=== PATIENT | male | born 1940 | race Caucasian/White ===

== ENCOUNTER 2017-09-10 19:56 | Emergency (ER) | payer MEDICARE, OTHER ==
[~2017-09-10] VITALS: Ht 180.3 cm; Wt 50.0 kg
[2017-09-10] MEDS ORDERED: albuterol 2.5 MG/3 ML nebule NEB ONE (20:25)
[2017-09-10] MEDS ORDERED: methylPREDNISolone sod succ 125mg/2ml vial IV ONE (20:25)
[2017-09-10 21:06] LABS: BASOPHILS % (AUTO) 0.3 % (0-1); EOSINOPHILS % (AUTO) 10.8 % (0-6); HEMATOCRIT 39.5 % (42.0-52.0); HEMOGLOBIN 13.3 g/dl (14.0-17.9); LYMPHOCYTES # (AUTO) 2.4 X10'3 (1.1-4.8); LYMPHOCYTES % (AUTO) 26.9 % (21-51); MEAN CORPUSCULAR HGB CONC 33.7 % (33.0-36.5); MEAN CORPUSCULAR VOLUME 89.1 FL (78-98); MEAN PLATELET VOLUME 7.6 FL (7.4-10.4); MONOCYTES # (AUTO) 0.8 X10'3 (0-0.9); MONOCYTES % (AUTO) 9.5 % (2-12); NEUTROPHILS # (AUTO) 4.7 X10'3 (1.8-7.7); NEUTROPHILS % (AUTO) 52.5 % (42-75); PLATELET COUNT 178 X10'3 (140-440); RED BLOOD COUNT 4.43 X10'6 (4.70-6.10); RED CELL DISTRIBUTION WIDTH 15.4 % (11.5-14.5); WHITE BLOOD COUNT 8.9 X10'3 (4.5-11.0)
[2017-09-10 21:09] LABS: D-DIMER 0.85 MG/L FEU (0-0.50); INR 1.1 INR; PARTIAL THROMBOPLASTIN TIME 27 SECONDS (22-32); PROTHROMBIN TIME 11.5 SECONDS (9.0-12.0)
[2017-09-10 21:10] LABS: ALANINE AMINOTRANSFERASE 18 U/L (12-78); ALBUMIN 3.2 G/DL (3.4-5.0); ALBUMIN/GLOBULIN RATIO 0.7 (1.1-1.5); ALKALINE PHOSPHATASE 85 IU/L (46-116); ANION GAP 6 (8-16); ASPARTATE AMINO TRANSFERASE 25 U/L (10-37); BILIRUBIN,TOTAL 0.9 MG/DL (0.1-1.0); BLOOD UREA NITROGEN 30 MG/DL (7-18); BUN/CREATININE RATIO 23.8 (5.4-32.0); CALCIUM 9.6 MG/DL (8.5-10.1); CHLORIDE 102 MMOL/L (99-107); CREATININE 1.26 MG/DL (0.60-1.10); GLUCOSE 90 MG/DL (70-104); POTASSIUM 3.9 MMOL/L (3.5-5.1); SODIUM 140 MMOL/L (135-145); TOTAL CARBON DIOXIDE 32.5 MMOL/L (24-32); TOTAL PROTEIN 7.6 G/DL (6.4-8.2); eGFR 55 ML/MIN
[2017-09-10 21:18] LABS: MAGNESIUM 1.9 MG/DL (1.5-2.4); PHOSPHORUS 2.5 MG/DL (2.3-4.5)
[2017-09-10] MEDS ORDERED: normal saline 1000ml 1,000 ML IV ONE (21:45)
[2017-09-10] MEDS ORDERED: iohexol 350MG/ML 100ml bottle IV ONE (22:20)
[2017-09-10 23:42] LABS: CLARITY,URINE CLEAR (Clear); COLOR,URINE AMBER (Yellow); GLUCOSE, URINE NEGATIVE (Neg); KETONES,URINE NEGATIVE (Neg); LEUKOCYTE ESTERASE ,URINE NEGATIVE (Neg); NITRITES, URINE NEGATIVE (Neg); OCCULT BLOOD,URINE LARGE (Neg); PROTEIN,URINE TRACE mg/dl (Neg)
[2017-09-10 23:45] LABS: UA COLLECTION TYPE STRAIGHT CATH
[2017-09-10 23:57] LABS: WBC,URINE 0-4 /HPF (0-4)
[2017-09-10 23:58] LABS: RBC,URINE 20-50 /HPF (0-2)
[2017-09-10 23:59] LABS: AMORPHOUS URATES 1+; BACTERIA,URINE NONE SEEN /HPF (Neg); CAL OXALATE CRYSTALS 1+ /HPF (NEGATIVE); MUCUS STRANDS NONE SEEN /LPF (Neg); SQUAMOUS EPITHELIAL CELL,UR FEW /LPF (FEW)
[2017-09-11] MEDS ORDERED: PRED20TA PO (00:09)
[2017-09-11 02:24] VITALS: BP 106/50
== END 2017-09-11 02:28 | disposition home or self-care (01) ==
LOC: ER 19:56
DX: J44.1 Chronic obstructive pulmonary disease with (acute) exacerbation (principal); Z87.891 Personal history of nicotine dependence; Z88.5 Allergy status to narcotic agent; Z79.899 Other long term (current) drug therapy
CPT/HCPCS: 36415; 71045; 71275; 80053; 81001; 83735; 83880; 84100; 84484; 85025; 85379; 85610; 85730; 93005; 94640; 94760; 96374; 99285; A4353; J2930; J7030; Q9967

== ENCOUNTER 2017-10-12 13:04 | Emergency (ER) | payer MEDICARE, OTHER ==
[~2017-10-12] VITALS: Ht 180.3 cm; Wt 55.0 kg
[~2017-10-12 13:04] MED LIST: PRED20TA PO
[2017-10-12] MEDS ORDERED: CLON-529 PO (14:42)
[2017-10-12] MEDS ORDERED: DICY10CA88 PO (14:42)
[2017-10-12] MEDS ORDERED: ONDA8TAB9 PO (14:42)
[2017-10-12] MEDS ORDERED: MORP30TA PO (16:03)
[2017-10-12] MEDS ORDERED: OXYC5CAP19 PO (16:03)
[2017-10-12] MEDS ORDERED: morphine 10mg/ml inj. IM ONE (16:10)
[2017-10-12 16:45] VITALS: BP 121/51
== END 2017-10-12 17:08 | disposition home or self-care (01) ==
LOC: ER 13:05
DX: F11.23 Opioid dependence with withdrawal (principal); M54.9 Dorsalgia, unspecified; J44.9 Chronic obstructive pulmonary disease, unspecified; Z60.2 Problems related to living alone; Z98.890 Other specified postprocedural states; Z88.5 Allergy status to narcotic agent; Z79.899 Other long term (current) drug therapy
CPT/HCPCS: 93005; 96372; 99284; J2270

== ENCOUNTER 2017-12-24 02:51 | Inpatient (IN) | payer MEDICARE, OTHER ==
[~2017-12-24] VITALS: Ht 180.3 cm; Wt 59.0 kg
[~2017-12-24 02:51] MED LIST changes: +CLON-529 PO; +ONDA8TAB9 PO; +OXYC5CAP19 PO; -PRED20TA PO
[2017-12-24] MEDS ORDERED: normal saline 1000ml 1,000 ML IV ONE (03:05)
[2017-12-24 03:14] LABS: BASOPHILS % (AUTO) 0.9 % (0-1); EOSINOPHILS # (AUTO) 0.2 X10'3 (0-0.9); EOSINOPHILS % (AUTO) 4.5 % (0-6); LYMPHOCYTES # (AUTO) 2.7 X10'3 (1.1-4.8); LYMPHOCYTES % (AUTO) 49.2 % (21-51); MEAN CORPUSCULAR HEMOGLOBIN 30.4 PG (27.0-31.0); MEAN CORPUSCULAR HGB CONC 33.3 % (33.0-36.5); MEAN CORPUSCULAR VOLUME 91.4 FL (78-98); MEAN PLATELET VOLUME 6.6 FL (7.4-10.4); MONOCYTES # (AUTO) 0.5 X10'3 (0-0.9); MONOCYTES % (AUTO) 10.1 % (2-12); NEUTROPHILS # (AUTO) 1.9 X10'3 (1.8-7.7); NEUTROPHILS % (AUTO) 35.3 % (42-75); PLATELET COUNT 202 X10'3 (140-440); RED CELL DISTRIBUTION WIDTH 16.1 % (11.5-14.5); WHITE BLOOD COUNT 5.4 X10'3 (4.5-11.0)
[2017-12-24 03:25] LABS: ALANINE AMINOTRANSFERASE 13 U/L (12-78); ALBUMIN 3.5 G/DL (3.4-5.0); ALBUMIN/GLOBULIN RATIO 0.9 (1.1-1.5); ALKALINE PHOSPHATASE 81 IU/L (46-116); ANION GAP 4 (8-16); ASPARTATE AMINO TRANSFERASE 24 U/L (10-37); BILIRUBIN,TOTAL 0.9 MG/DL (0.1-1.0); BLOOD UREA NITROGEN 15 MG/DL (7-18); BUN/CREATININE RATIO 14.3 (5.4-32.0); CALCIUM 9.7 MG/DL (8.5-10.1); CHLORIDE 102 MMOL/L (99-107); CREATININE 1.05 MG/DL (0.60-1.10); GLUCOSE 139 MG/DL (70-104); SODIUM 142 MMOL/L (135-145); TOTAL CARBON DIOXIDE 35.8 MMOL/L (24-32); TOTAL PROTEIN 7.4 G/DL (6.4-8.2); eGFR 68 ML/MIN
[2017-12-24 03:28] LABS: CLARITY,URINE CLEAR (Clear); COLOR,URINE YELLOW (Yellow); GLUCOSE, URINE NEGATIVE (Neg); KETONES,URINE NEGATIVE (Neg); LEUKOCYTE ESTERASE ,URINE NEGATIVE (Neg); NITRITES, URINE NEGATIVE (Neg); OCCULT BLOOD,URINE TRACE-INTACT (Neg); PROTEIN,URINE NEGATIVE (Neg)
[2017-12-24 03:31] LABS: MAGNESIUM 2.1 MG/DL (1.5-2.4)
[2017-12-24 03:34] LABS: UA COLLECTION TYPE CLN CATCH MIDSTREAM
[2017-12-24 03:35] LABS: BACTERIA,URINE FEW /HPF (Neg); SQUAMOUS EPITHELIAL CELL,UR FEW /LPF (FEW); WBC,URINE NONE SEEN /HPF (0-4)
[2017-12-24 03:38] LABS: INR 1.1 INR; PARTIAL THROMBOPLASTIN TIME 29 SECONDS (22-32); PROTHROMBIN TIME 10.9 SECONDS (9.0-12.0)
[2017-12-24 04:00] LABS: ABG BASE EXCESS 6.1 mmol/L (-2.0-3.0); ABG HCO3 34.2 mmol/L (22.0-26.0); ABG OXYGEN SATURATION 88.1 % (95-98); ABG PCO2 (T) 65.4 mmHg (35.0-48.0); ABG PH (T) 7.334 (7.350-7.450); ABG PO2 (T) 52.7 mmHg (83-108); FCOHb 0.5 % (0.5-1.5); FMetHb 0.1 % (0.3-1.12); FO2Hb 87.6 % (94-100); PATIENT TEMPERATURE 36.4; TOTAL HEMOGLOBIN 12.9 G/dl (14.0-18.0)
[2017-12-24] MEDS ORDERED: albuterol 2.5 MG/3 ML nebule CONTNEB PRN (04:40)
[2017-12-24] MEDS ORDERED: methylPREDNISolone sod succ 125mg/2ml vial IV ONE (04:40)
[2017-12-24] MEDS ORDERED: GABA-532 PO (04:42)
[2017-12-24] MEDS ORDERED: ipratropium 0.5 MG/2.5ML nebule IH ONE ×2 (05:10→05:15)
[2017-12-24] MEDS ORDERED: ketorolac tromethamine 15mg/ml inj. IV ONE (06:50)
[2017-12-24] MEDS ORDERED: ipratropium/albuterol 3ml nebule NEB SCH (07:00)
[2017-12-24] MEDS: K and/or MAG REPLACEMENT MC SCH (09:40)
[2017-12-24] MEDS ORDERED: magnesium hydroxide 30ml (MOM) UD suspension PO PRN (09:40)
[2017-12-24] MEDS ORDERED: potassium Cl 20 mEq SR tablet PO PRN ×2 (09:40)
[2017-12-24] MEDS ORDERED: magnesium 4gm in 100ml NS 100 ML IV PRN (09:40)
[2017-12-24] MEDS ORDERED: ondansetron/PF 4mg/2ml inj IV PRN (09:40)
[2017-12-24] MEDS ORDERED: mag hydrox/Alum hydrox/simeth 30ml oral suspension PO PRN (09:40)
[2017-12-24] MEDS ORDERED: magnesium Cl slow-release 64mg tablet PO PRN (09:40)
[2017-12-24] MEDS ORDERED: HYDROcodone/acetaminophen 5mg/325mg tablet PO PRN (09:40)
[2017-12-24] MEDS ORDERED: acetaminophen 325mg tablet PO PRN ×2 (09:40)
[2017-12-24] MEDS ORDERED: potassium Cl 40MEQ/NS 500ml 500 ML IV PRN ×2 (09:40)
[2017-12-24] MEDS ORDERED: diphenhydrAMINE 25mg capsule PO PRN (09:40)
[2017-12-24] MEDS ORDERED: magnesium 1gm/100ml D5W IVPB 100 ML IV PRN (09:40)
[2017-12-24] MEDS: enoxaparin 40mg/0.4ml syringe SUBCUT SCH (10:16)
[2017-12-24] MEDS: normal saline 1000ml 1,000 ML IV SCH ×3 (10:17→23:30)
[2017-12-24] MEDS: levoFLOXACIN-Levaquin 500mg/D5 100 ML IV SCH (10:18)
[2017-12-24] MEDS: ipratropium/albuterol 3ml nebule NEB SCH ×5 (11:00→23:31)
[2017-12-24 11:30] VITALS: BP 104/62
[2017-12-24] MEDS: HYDROcodone/acetaminophen 10/325mg tab PO PRN ×4 (12:08→23:45)
[2017-12-24] MEDS ORDERED: gabapentin 300mg capsule PO SCH (13:00)
[2017-12-24] MEDS ORDERED: ondansetron 4mg rapidly disintigrating tab PO PRN (13:00)
[2017-12-24] MEDS: methylPREDNISolone sod succ 125mg/2ml vial IV SCH ×2 (16:33→23:32)
[2017-12-24 16:45] VITALS: BP_SYST 101; BP_SYST 102; BP_SYST 84; BP_DIAS 49; BP_DIAS 51
[2017-12-24 19:00] VITALS: BP 95/46
[2017-12-24 20:00] VITALS: BP_SYST 101; BP_SYST 102; BP_SYST 84; BP_DIAS 49; BP_DIAS 51
[2017-12-24] MEDS: cloNIDine 0.1 mg tablet PO SCH (20:00)
[2017-12-24] MEDS ORDERED: temazepam 15mg capsule PO PRN (21:00)
[2017-12-24] MEDS: gabapentin 300mg capsule PO SCH (21:02)
[2017-12-24 23:00] VITALS: BP 95/56
[2017-12-25] MEDS: ipratropium/albuterol 3ml nebule NEB SCH ×6 (02:56→23:09)
[2017-12-25] MEDS: HYDROcodone/acetaminophen 10/325mg tab PO PRN ×5 (05:03→21:53)
[2017-12-25 05:24] LABS: BASOPHILS % (AUTO) 0 % (0-1); EOSINOPHILS # (AUTO) 0.1 X10'3 (0-0.9); EOSINOPHILS % (AUTO) 0.5 % (0-6); HEMATOCRIT 36.4 % (42.0-52.0); HEMOGLOBIN 12.2 g/dl (14.0-17.9); LYMPHOCYTES # (AUTO) 0.5 X10'3 (1.1-4.8); LYMPHOCYTES % (AUTO) 3.5 % (21-51); MEAN CORPUSCULAR HEMOGLOBIN 30.4 PG (27.0-31.0); MEAN CORPUSCULAR HGB CONC 33.5 % (33.0-36.5); MEAN CORPUSCULAR VOLUME 90.8 FL (78-98); MEAN PLATELET VOLUME 7.2 FL (7.4-10.4); MONOCYTES # (AUTO) 0.1 X10'3 (0-0.9); MONOCYTES % (AUTO) 0.7 % (2-12); NEUTROPHILS # (AUTO) 12.7 X10'3 (1.8-7.7); NEUTROPHILS % (AUTO) 95.3 % (42-75); PLATELET COUNT 162 X10'3 (140-440); RED BLOOD COUNT 4.01 X10'6 (4.70-6.10); WHITE BLOOD COUNT 13.3 X10'3 (4.5-11.0)
[2017-12-25] MEDS ORDERED: MORP30CP13 PO (05:55)
[2017-12-25 05:56] LABS: ALANINE AMINOTRANSFERASE 16 U/L (12-78); ALBUMIN/GLOBULIN RATIO 0.9 (1.1-1.5); ALKALINE PHOSPHATASE 68 IU/L (46-116); ANION GAP 9 (8-16); ASPARTATE AMINO TRANSFERASE 24 U/L (10-37); BILIRUBIN,TOTAL 0.6 MG/DL (0.1-1.0); CALCIUM 9.3 MG/DL (8.5-10.1); CHLORIDE 106 MMOL/L (99-107); CREATININE 1.18 MG/DL (0.60-1.10); GLUCOSE 161 MG/DL (70-104); MAGNESIUM 1.7 MG/DL (1.5-2.4); PHOSPHORUS 2.6 MG/DL (2.3-4.5); SODIUM 142 MMOL/L (135-145); TOTAL CARBON DIOXIDE 27.5 MMOL/L (24-32); TOTAL PROTEIN 6.5 G/DL (6.4-8.2); eGFR 60 ML/MIN
[2017-12-25] MEDS ORDERED: OXYC5CAP19 PO (06:00)
[2017-12-25 06:04] LABS: POTASSIUM 3.9 MMOL/L (3.5-5.1)
[2017-12-25 07:00] VITALS: BP 90/62
[2017-12-25] MEDS: levoFLOXACIN-Levaquin 500mg/D5 100 ML IV SCH (07:21)
[2017-12-25] MEDS: enoxaparin 40mg/0.4ml syringe SUBCUT SCH (07:22)
[2017-12-25] MEDS: cloNIDine 0.1 mg tablet PO SCH (07:23)
[2017-12-25] MEDS: methylPREDNISolone sod succ 125mg/2ml vial IV SCH ×2 (07:23→21:00)
[2017-12-25] MEDS: gabapentin 300mg capsule PO SCH ×3 (07:23→21:00)
[2017-12-25 07:24] LABS: BLOOD UREA NITROGEN 18 MG/DL (7-18); BUN/CREATININE RATIO 15.3 (5.4-32.0)
[2017-12-25 08:00] VITALS: BP_SYST 89; BP_SYST 90; BP_SYST 91; BP_DIAS 48; BP_DIAS 55; BP_DIAS 62
[2017-12-25] MEDS: K and/or MAG REPLACEMENT MC SCH (08:00)
[2017-12-25 11:00] VITALS: BP 76/41
[2017-12-25 11:15] VITALS: BP 80/57
[2017-12-25] MEDS: normal saline 1000ml 1,000 ML IV SCH (19:00)
[2017-12-25 20:00] VITALS: BP 103/67
[2017-12-25 21:00] VITALS: BP_SYST 103; BP_SYST 95; BP_SYST 99; BP_DIAS 40; BP_DIAS 58; BP_DIAS 62
[2017-12-25] MEDS: lactobacillus rhamnosus 10,000 MMU CELLS/CAPSULE PO SCH (21:00)
[2017-12-26] MEDS: normal saline 1000ml 1,000 ML IV SCH ×2 (01:39→11:53)
[2017-12-26] MEDS: ipratropium/albuterol 3ml nebule NEB SCH ×5 (02:33→19:12)
[2017-12-26] MEDS: HYDROcodone/acetaminophen 10/325mg tab PO PRN ×3 (02:43→11:51)
[2017-12-26] MEDS: gabapentin 300mg capsule PO SCH ×3 (05:12→20:08)
[2017-12-26 05:23] LABS: BASOPHILS % (AUTO) 0 % (0-1); EOSINOPHILS # (AUTO) 0.2 X10'3 (0-0.9); EOSINOPHILS % (AUTO) 1.3 % (0-6); HEMATOCRIT 33.9 % (42.0-52.0); HEMOGLOBIN 11.3 g/dl (14.0-17.9); LYMPHOCYTES # (AUTO) 0.4 X10'3 (1.1-4.8); LYMPHOCYTES % (AUTO) 2.3 % (21-51); MEAN CORPUSCULAR HEMOGLOBIN 30.3 PG (27.0-31.0); MEAN CORPUSCULAR HGB CONC 33.4 % (33.0-36.5); MEAN CORPUSCULAR VOLUME 90.6 FL (78-98); MEAN PLATELET VOLUME 7.4 FL (7.4-10.4); MONOCYTES # (AUTO) 0.2 X10'3 (0-0.9); NEUTROPHILS # (AUTO) 16.1 X10'3 (1.8-7.7); NEUTROPHILS % (AUTO) 95.4 % (42-75); PLATELET COUNT 158 X10'3 (140-440); RED BLOOD COUNT 3.75 X10'6 (4.70-6.10); RED CELL DISTRIBUTION WIDTH 16.3 % (11.5-14.5); WHITE BLOOD COUNT 16.9 X10'3 (4.5-11.0)
[2017-12-26 05:47] LABS: ALANINE AMINOTRANSFERASE 13 U/L (12-78); ALBUMIN 2.8 G/DL (3.4-5.0); ALBUMIN/GLOBULIN RATIO 0.9 (1.1-1.5); ALKALINE PHOSPHATASE 54 IU/L (46-116); ANION GAP 9 (8-16); ASPARTATE AMINO TRANSFERASE 19 U/L (10-37); BILIRUBIN,TOTAL 0.5 MG/DL (0.1-1.0); BLOOD UREA NITROGEN 21 MG/DL (7-18); BUN/CREATININE RATIO 16.9 (5.4-32.0); CALCIUM 9.1 MG/DL (8.5-10.1); CHLORIDE 109 MMOL/L (99-107); CREATININE 1.24 MG/DL (0.60-1.10); GLUCOSE 126 MG/DL (70-104); MAGNESIUM 1.9 MG/DL (1.5-2.4); PHOSPHORUS 1.7 MG/DL (2.3-4.5); POTASSIUM 3.5 MMOL/L (3.5-5.1); SODIUM 145 MMOL/L (135-145); TOTAL CARBON DIOXIDE 26.8 MMOL/L (24-32); eGFR 56 ML/MIN
[2017-12-26] MEDS: lactobacillus rhamnosus 10,000 MMU CELLS/CAPSULE PO SCH ×2 (07:25→20:08)
[2017-12-26] MEDS: enoxaparin 40mg/0.4ml syringe SUBCUT SCH (07:27)
[2017-12-26] MEDS: methylPREDNISolone sod succ 125mg/2ml vial IV SCH (07:30)
[2017-12-26] MEDS: levoFLOXACIN-Levaquin 250mg/D5 50 ML IV SCH (07:30)
[2017-12-26 08:00] VITALS: BP 115/51
[2017-12-26] MEDS: K and/or MAG REPLACEMENT MC SCH (08:00)
[2017-12-26 12:13] VITALS: BP 110/60
[2017-12-26] MEDS ORDERED: sodium phosphate inj. 30 MMOL in dextrose 5%-water 250 ML IV ONE (15:45)
[2017-12-26] MEDS ORDERED: Protein Shake (high protein) 240ml (8oz) cup PO SCH (17:30)
[2017-12-26] MEDS: oxyCODONE/APAP 10/325mg tablet PO PRN ×2 (17:38→21:32)
[2017-12-26 18:00] VITALS: BP_SYST 103; BP_SYST 110; BP_SYST 117; BP_DIAS 57; BP_DIAS 71; BP_DIAS 93
[2017-12-26 20:00] VITALS: BP 96/43
[2017-12-26] MEDS: methylPREDNISolone sod succ/PF 40mg inj. IV SCH (20:08)
[2017-12-27] VITALS: BP 125/64
[2017-12-27] MEDS: ipratropium/albuterol 3ml nebule NEB SCH ×4 (00:35→11:17)
[2017-12-27] MEDS: oxyCODONE/APAP 10/325mg tablet PO PRN ×4 (01:49→13:59)
[2017-12-27] MEDS: gabapentin 300mg capsule PO SCH ×2 (05:38→12:29)
[2017-12-27 05:51] LABS: BASOPHILS % (AUTO) 0 % (0-1); EOSINOPHILS # (AUTO) 0.1 X10'3 (0-0.9); HEMATOCRIT 34.4 % (42.0-52.0); HEMOGLOBIN 11.6 g/dl (14.0-17.9); LYMPHOCYTES # (AUTO) 0.6 X10'3 (1.1-4.8); LYMPHOCYTES % (AUTO) 5.1 % (21-51); MEAN CORPUSCULAR HEMOGLOBIN 30.5 PG (27.0-31.0); MEAN CORPUSCULAR HGB CONC 33.7 % (33.0-36.5); MEAN CORPUSCULAR VOLUME 90.5 FL (78-98); MEAN PLATELET VOLUME 7.6 FL (7.4-10.4); MONOCYTES # (AUTO) 0.2 X10'3 (0-0.9); MONOCYTES % (AUTO) 1.6 % (2-12); NEUTROPHILS # (AUTO) 11.2 X10'3 (1.8-7.7); NEUTROPHILS % (AUTO) 92.3 % (42-75); PLATELET COUNT 150 X10'3 (140-440); WHITE BLOOD COUNT 12.1 X10'3 (4.5-11.0)
[2017-12-27 06:10] LABS: ALANINE AMINOTRANSFERASE 13 U/L (12-78); ALBUMIN 2.7 G/DL (3.4-5.0); ALBUMIN/GLOBULIN RATIO 0.9 (1.1-1.5); ALKALINE PHOSPHATASE 55 IU/L (46-116); ANION GAP 9 (8-16); ASPARTATE AMINO TRANSFERASE 21 U/L (10-37); BILIRUBIN,TOTAL 0.5 MG/DL (0.1-1.0); BLOOD UREA NITROGEN 21 MG/DL (7-18); BUN/CREATININE RATIO 19.6 (5.4-32.0); CALCIUM 8.6 MG/DL (8.5-10.1); CHLORIDE 110 MMOL/L (99-107); CREATININE 1.07 MG/DL (0.60-1.10); GLUCOSE 121 MG/DL (70-104); MAGNESIUM 1.9 MG/DL (1.5-2.4); PHOSPHORUS 3.5 MG/DL (2.3-4.5); POTASSIUM 3.4 MMOL/L (3.5-5.1); SODIUM 146 MMOL/L (135-145); TOTAL CARBON DIOXIDE 26.6 MMOL/L (24-32); TOTAL PROTEIN 5.6 G/DL (6.4-8.2); eGFR 67 ML/MIN
[2017-12-27 07:24] VITALS: BP 116/45
[2017-12-27] MEDS ORDERED: lactose-reduced food (Ensure High Protein) 237ml bottle PO SCH (07:30)
[2017-12-27] MEDS: enoxaparin 40mg/0.4ml syringe SUBCUT SCH (07:58)
[2017-12-27] MEDS: levoFLOXACIN-Levaquin 250mg/D5 50 ML IV SCH (07:58)
[2017-12-27] MEDS: lactobacillus rhamnosus 10,000 MMU CELLS/CAPSULE PO SCH (07:59)
[2017-12-27 08:00] VITALS: BP 116/45
[2017-12-27] MEDS: K and/or MAG REPLACEMENT MC SCH (08:00)
[2017-12-27] MEDS: methylPREDNISolone sod succ/PF 40mg inj. IV SCH (08:11)
[2017-12-27] MEDS ORDERED: LEVO500T89 PO (09:25)
[2017-12-27] MEDS ORDERED: LACT1CAP26 PO (09:25)
[2017-12-27] MEDS ORDERED: PRED20TA PO (09:25)
[2017-12-27] MEDS ORDERED: ALBU8.5H8 INH (09:25)
[2017-12-27] MEDS ORDERED: BUDE10.22 INH (09:25)
[2017-12-27 11:50] VITALS: BP 122/56
[2017-12-27 11:52] VITALS: BP_SYST 111; BP_SYST 122; BP_SYST 134; BP_DIAS 44; BP_DIAS 56; BP_DIAS 71
[2017-12-27] MEDS: normal saline 1000ml 1,000 ML IV SCH (12:47)
[2017-12-27 16:09] VITALS: BP 107/81
[2017-12-28] MEDS ORDERED: levoFLOXACIN 250mg tablet PO SCH (11:00)
== END 2017-12-27 17:20 | disposition home health service (06) | DRG 189 ==
LOC: ER 02:51 → ED HOLD 09:39 → SUR 3N 11:15
PROVIDERS: ADMIT Family Medicine; ATTEND Family Medicine
DX: J96.21 Acute and chronic respiratory failure with hypoxia (principal); E43 Unspecified severe protein-calorie malnutrition; J44.1 Chronic obstructive pulmonary disease with (acute) exacerbation; E87.2 Acidosis; Z68.1 Body mass index [BMI] 19.9 or less, adult; I95.9 Hypotension, unspecified; D72.829 Elevated white blood cell count, unspecified; Z60.2 Problems related to living alone; G89.4 Chronic pain syndrome; I10 Essential (primary) hypertension; M06.9 Rheumatoid arthritis, unspecified; N20.0 Calculus of kidney; Z90.2 Acquired absence of lung [part of]; Z99.81 Dependence on supplemental oxygen; Z88.5 Allergy status to narcotic agent; Z91.018 Allergy to other foods; Z87.891 Personal history of nicotine dependence
CPT/HCPCS: 36415; 36600; 71045; 74176; 80053; 81001; 82803; 83605; 83735; 83880; 84100; 84145; 84484; 85018; 85025; 85610; 85730; 87040; 87070; 93005; 94640; 94644; 94760; 96374; 97162; 97530; 99285; A6213; A6258; J1650; J1885; J1956; J2920; J2930; J7030; J7060